=== PATIENT | female | born 1945 | race Caucasian/White ===

== ENCOUNTER 2017-08-07 21:48 | Emergency (ER) | payer MEDICARE, OTHER ==
[~2017-08-07] VITALS: Ht 162.6 cm; Wt 95.3 kg
[2017-08-07] MEDS ORDERED: TETANUS/DIPHTHERIA TOX ADULT 0.5 ML SYR IM ONE (22:30)
[2017-08-07] MEDS ORDERED: HYDROCODONE/APAP 5MG-325MG TAB PO ONE (22:30)
[2017-08-07] MEDS ORDERED: SUPER B COMPLE150 MG (22:49)
[2017-08-07] MEDS ORDERED: AZATHIOPRINE50 MG PO (22:49)
[2017-08-07] MEDS ORDERED: OXYBUTYNIN CHLOR5 M1 PO (22:49)
[2017-08-07] MEDS ORDERED: LOSARTAN POTAS100 MG PO (22:49)
[2017-08-07] MEDS ORDERED: VITAMIN D400 UNIT PO (22:49)
[2017-08-07] MEDS ORDERED: MELOXICAM7.5 MG PO (22:49)
[2017-08-07] MEDS ORDERED: CALCIUM CARBON500 MG PO (22:49)
[2017-08-08] MEDS ORDERED: BACITRACIN ZINC 0.9GM TP ONE
== END 2017-08-08 | disposition home or self-care (01) ==
LOC: FSED 21:48
DX: S52.512A Displaced fracture of left radial styloid process, initial encounter for closed fracture (principal); S52.612A Displaced fracture of left ulna styloid process, initial encounter for closed fracture; S60.812A Abrasion of left wrist, initial encounter; W01.0XXA Fall on same level from slipping, tripping and stumbling without subsequent striking against object, initial encounter; Y92.488 Other paved roadways as the place of occurrence of the external cause; Z98.84 Bariatric surgery status
CPT/HCPCS: 36415; 82948; 90714; 99284